=== PATIENT | female | born 1975 | race Caucasian/White ===

== ENCOUNTER 2017-01-08 08:45 | Day surgery (SDC) | payer BC ==
[~2017-01-08 08:45] MED LIST: CYCLOBENZAPRINE10 M1 PO; FLONASE ALLERG9.9 ML; LEVAQUIN; LEXAPRO10 M2 PO; LEXAPRO20 M2 PO; NORCO 5-325 TA1 EACH PO; PERCOCET 5-3251 EACH PO; SINGULAIR10 M1 PO; VITAMIN D32000 UNI3 PO; WELLBUTRIN SR150 M2 PO; XYZAL5 M1 PO; [UNRECOGNIZED DRUG - OTHER] PO
[2017-06-03] MEDS ORDERED: LAMICTAL25 M2 PO (14:01)
[2017-06-03] MEDS ORDERED: VITAMIN B COMP1 EAC1 PO (14:02)
[2017-06-03] MEDS ORDERED: COMPAZINE10 MG PO (16:26)
[2017-06-03] MEDS ORDERED: BENTYL10 M1 PO (16:26)
== END 2017-01-08 16:50 ==
LOC: SHSB 08:45 → ORW 12:45 → PACU 13:50 → SHSB 14:45
PROC: 0HBT0ZX Excision of Right Breast, Open Approach, Diagnostic (ICD-10-PCS; principal; 2017-01-08)
DX: N64.89 Other specified disorders of breast (principal); F41.9 Anxiety disorder, unspecified; F32.9 Major depressive disorder, single episode, unspecified; J45.909 Unspecified asthma, uncomplicated; J32.9 Chronic sinusitis, unspecified; Z79.899 Other long term (current) drug therapy; Z88.0 Allergy status to penicillin; Z88.1 Allergy status to other antibiotic agents; Z88.2 Allergy status to sulfonamides; Z86.14 Personal history of Methicillin resistant Staphylococcus aureus infection; Z90.49 Acquired absence of other specified parts of digestive tract; Z90.710 Acquired absence of both cervix and uterus; Z98.890 Other specified postprocedural states
CPT/HCPCS: G0206; J1956